=== PATIENT | male | born 1995 ===

== ENCOUNTER 2019-08-01 14:32 | Emergency (ER) | payer BC, OTHER ==
--- NOTE | 2019-08-01 14:48 | UC ---
Eye Complaint HPI - HPI Summary HPI Summary: Patient is a 23yo male presenting with L eye pain and blurry vision since last night when he walked into a tree branch. Patient does not wear contact lenses. Patient states he went to sleep and woke up with worsening pain and found his eye crusted shut. States he was able to get it open and notes scant discharge. Notes photophobia. Notes blurry vision of left eye. Notes foreign body sensation that "comes in waves" and is worse with eye movement. Patient states he has had corneal abrasions in the past from wrestling that were "worse than this." - History of Current Complaint Stated Complaint: EYE INJURY Hx Obtained From: Patient Onset/Duration: Sudden Onset Timing: Constant Severity Initially: Moderate Severity Currently: Severe Pain Scale Used: 0-10 Numeric Character: Foreign Body Sensation - Allergies/Home Medications Allergies/Adverse Reactions: Allergies Allergy/AdvReac Type Severity Reaction Status Date / Time No Known Allergies Allergy Verified 08/01/19 14:53 Home Medications: Home Medications Ibuprofen TAB* [Advil TAB*] 400 mg PO QID PRN 08/01/19 [History Confirmed ] PMH/Surg Hx/FS Hx/Imm Hx Previously Healthy: Yes - Surgical History Surgical History: Yes Surgery Procedure, Year, and Place: CYST REMOVED FROM BACK OF HEAD 2013. PERITONSILLAR ABSCESS A BABY - Family History Known Family History: Positive: Unknown, Non-Contributory - Social History Occupation: Student Lives: Dormitory/Roommates Alcohol Use: Occasionally Substance Use Type: None Smoking Status (MU): Never Smoked Tobacco Review of Systems All Other Systems Reviewed And Are Negative: Yes Constitutional: Positive: Negative. Negative: Fever, Chills Eyes: Positive: Blurred Vision, Drainage, Eye Redness, Photophobia, Other - corneal abrasion Respiratory: Positive: Negative Cardiovascular: Positive: Negative Gastrointestinal: Positive: Negative Neurological: Positive: Negative Physical Exam Triage Information Reviewed: Yes Appearance: Well-Appearing, No Pain Distress, Well-Nourished, Ill-Appearing Vital Signs: Vital Signs (72 hours) 08/01/19 14:49 Temperature 98.7 F Pulse Rate 85 Respiratory 17 Rate Blood Pressure 143/65 (mmHg) O2 Sat by Pulse 97 Oximetry Vital Signs Reviewed: Yes Eyes: Positive: Conjunctiva Inflamed - L eye, Discharge - yellow discharge noted in medial canthus of L eye, Other: - PERRLA. EOM intact. No ulcer or abrasion noted on initial examination. Examination after fluorescein staining revealed approx 3mm corneal ulcerartion noted over inferolateral iris and sclera ENT: Positive: Hearing grossly normal Neck: Positive: Supple Respiratory Exam: Normal Respiratory: Positive: Lungs clear, Normal breath sounds, No respiratory distress Cardiovascular Exam: Normal Cardiovascular: Positive: RRR Neurological: Positive: Alert Psychological: Positive: Age Appropriate Behavior Eye Complaint Course/Dx - Course Course Of Treatment: The L eye was numbed with tetracaine and visualized with lazo lamp after fluorescein staining. Patient tolerated this well. Patient noted pain improving along with vision becoming clearer. I prescribed erythromycin ointment and instructed to continue with ibuprofen for pain. I instructed him to follow up with [facility] as soon as possible tomorrow for further eval. Patient voiced understanding and agreed with the treatment plan. Discussed the patient with Dr. Segundo who also agreed with the treatment plan. - Differential Dx/Diagnosis Differential Diagnosis/HQI/PQRI: Corneal Abrasion Provider Diagnosis: Corneal ulcer of left eye Discharge ED - Sign-Out/Discharge Documenting (check all that apply): Patient Departure All imaging exams completed and their final reports reviewed: No Studies - Discharge Plan Condition: Stable Disposition: HOME Prescriptions: Erythromycin OPTH OINT* [Erythromycin 0.5% OPTH OINT*] 1 applic LEFT EYE TID 7 Days #1 ophth.oint Patient Education Materials: Corneal Ulcer (ED) Forms: *School Release Referrals: Roger Knight MD [Medical Doctor] - As Soon As Possible Additional Instructions: As discussed, use the erythromycin ointment in your left eye as prescribed. You may take ibuprofen for pain. It is important that follow up with the ophthalmology referral listed below as soon as possible tomorrow for further evaluation. Make sure you tell them that you were seen here today. - Billing Disposition and Condition Condition: STABLE Disposition: Home - Attestation Statements Provider Attestation: I was available for consult. This patient was seen by the AL[facility]O. The patient was not presented to, seen by, or examined by me. -Carson
[2019-08-01 14:53] VITALS: BP 143/65
[2019-08-01] MEDS ORDERED: Tetracaine 0.5% OPTH.SOL 4 ML* 1 DROP BTL ONE (14:55)
[2019-08-01] MEDS ORDERED: Fluorescein Sodium TOPICAL* 1 MG TEST STRIP OPHTHALMIC ONE (15:01)
== END 2019-08-01 15:30 | disposition home or self-care (01) ==
LOC: UCEAST 14:32
DX: H16.002 Unspecified corneal ulcer, left eye (principal)
CPT/HCPCS: 99212; A9270-GY; G0463